=== PATIENT | male | born 1955 | race Caucasian/White ===

== ENCOUNTER 2017-02-01 17:52 | Emergency (ER) | payer OTHER ==
[2017-02-01 18:26] VITALS: BP 153/82
--- NOTE | 2017-02-01 18:49 | RAD ---
INDICATION: Cough and chest pain. COMPARISON: There are no prior studies available for comparison. TECHNIQUE: Dual-energy PA and lateral views of the chest were obtained. FINDINGS: The heart is within normal limits in size. Mediastinal and hilar contours appear within normal limits. The lungs are hyperinflated and clear. No pleural effusion is seen. IMPRESSION: NO EVIDENCE FOR ACUTE FINDING.
--- NOTE | 2017-02-01 19:02 | ED ---
Influenza-Like Illness - HPI Summary HPI Summary: 61 yr old male with the complaint of runny nose, cough, chills, sore throat. Onset a couple of days ago. He has fatigue as well. He states his voice has become slightly hoarse as well. He denies SOB. He does have pain in the upper chest with coughing only. No other complaints. - History of Current Complaint Chief Complaint: UCGeneralIllness Time Seen by Provider: 02/01/17 18:25 - Allergy/Home Medications Allergies/Adverse Reactions: Allergies Allergy/AdvReac Type Severity Reaction Status Date / Time No Known Allergies Allergy Verified 02/01/17 18:21 PMH/Surg Hx/FS Hx/Imm Hx Cardiovascular History: Denies: Hx Hypertension Respiratory History: Denies: Hx Asthma - Surgical History Surgery Procedure, Year, and Place: LEFT knee Infectious Disease History: No Infectious Disease History: Denies: Traveled Outside the [place] in Last 30 Days - Family History Known Family History: Positive: Cardiac Disease - father - Social History Alcohol Use: Rare Substance Use Type: Reports: None Smoking Status (MU): Never Smoked Tobacco Review of Systems Positive: Fever, Chills Positive: Sore Throat, Nasal Discharge Positive: Cough All Other Systems Reviewed And Are Negative: Yes Physical Exam Triage Information Reviewed: Yes Vital Signs On Initial Exam: Initial Vitals Temp Pulse Resp BP Pulse Ox 99.5 F 89 18 153/82 99 02/01/17 18:22 02/01/17 18:22 02/01/17 18:22 02/01/17 18:22 02/01/17 18:22 Vital Signs Reviewed: Yes Appearance: Positive: Well-Appearing, No Pain Distress Skin: Positive: Warm, Skin Color Reflects Adequate Perfusion Head/Face: Positive: Normal Head/Face Inspection Eyes: Positive: Normal, EOMI ENT: Positive: Normal ENT inspection, TMs normal, Muffled/hoarse voice - slight hoarseness to voice Neck: Positive: Supple Respiratory/Lung Sounds: Positive: Clear to Auscultation, Breath Sounds Present. Negative: Stridor Cardiovascular: Positive: Normal, RRR. Negative: Murmur Abdomen Description: Positive: Nontender Musculoskeletal: Positive: Normal, Strength/ROM Intact Neurological: Positive: Normal, Sensory/Motor Intact, Alert, Oriented to Person Place, Time, CN Intact II-III Psychiatric: Positive: Normal Diagnostics - Vital Signs Vital Signs Temp Pulse Resp BP Pulse Ox 02/01/17 18:22 99.5 F 89 18 153/82 99 - Laboratory Lab Results: Lab Results 02/01/17 Range/Units 18:34 Influenza A (Rapid) Negative (Negative) Influenza B (Rapid) Positive H (Negative) Lab Statement: Any lab studies that have been ordered have been reviewed, and results considered in the medical decision making process. Flu Symptom Course/Dx - Course Course Of Treatment: 61 yr old with Influenza B. RX tamiflu and FU PMD - Diagnoses Provider Diagnoses: Influenza Discharge - Discharge Plan Condition: Good Disposition: HOME Prescriptions: Oseltamivir CAP* [Tamiflu CAP*] 75 mg PO BID #10 cap Patient Education Materials: Influenza (ED) Referrals: Jacob Arias MD [Primary Care Provider] -
== END 2017-02-01 19:12 | disposition home or self-care (01) ==
LOC: UCCORT 17:52
DX: J11.1 Influenza due to unidentified influenza virus with other respiratory manifestations (principal)
CPT/HCPCS: 71020; 87502; 99202; G0463

== ENCOUNTER 2017-02-15 17:59 | Emergency (ER) | payer OTHER ==
[2017-02-15 18:26] VITALS: BP 153/90
--- NOTE | 2017-02-15 18:57 | UC ---
Respiratory Complaint HPI - HPI Summary HPI Summary: The patient comes in today for: 1. Rhinitis, cough, eye discharge, plugged ear, Onset: 3-4 days ago. Palliative/provocative: ibuprofen helps "for a couple hours." Quality: Not barking. Region: chest, and nose. Severity: 0/10 Time: Constant. Associated symptoms: Fevers: None. Rhinitis: Dark green. Sinus pressure: Cough: productive of dark green material. * - History of Current Complaint Chief Complaint: UCRespiratory Stated Complaint: COUGH,GLYNN,EYE COMPLAINT Time Seen by Provider: 02/15/17 18:50 Hx Obtained From: Patient - Allergies/Home Medications Allergies/Adverse Reactions: Allergies Allergy/AdvReac Type Severity Reaction Status Date / Time No Known Allergies Allergy Verified 02/15/17 18:26 Home Medications: Home Medications Acetaminophen [Acetaminophen Extra Stren] 2 tab PO Q6H PRN 02/15/17 [History Confirmed 02/15/17] Ibuprofen TAB* [Motrin TAB* 600 MG] 1 tab PO Q6H PRN 02/15/17 [History Confirmed 02/15/17] PMH/Surg Hx/FS Hx/Imm Hx Previously Healthy: Yes Endocrine History Of: Denies: Diabetes, Thyroid Disease, Hyperthyroidism, Hypothyroidism, Dyslipidemia Cardiovascular History Of: Denies: Cardiac Disorders, Hypertension, Pacemaker/ICD, Myocardial Infarction , Congestive Heart Failure, Atrial Fibrillation, Deep Vein Thrombosis, Bleeding Disorders Respiratory History Of: Denies: COPD, Asthma, Bronchitis, Pneumonia, Pulmonary Embolism GI/ History Of: Denies: Gastroesophageal Reflux, Ulcer, Gastrointestinal Bleed, Gall Bladder Disease, Kidney Stones, Diverticulitis, Renal Disease, Urosepsis Neurological History Of: Denies: TIA, CVA, Dementia, Seizures, Migraine Psychological History Of: Denies: Anxiety, Depression, Bipolar Disorder, Schizophrenia, Post Traumatic Stress Disorder Cancer History Of: Denies: Lung Cancer, Colorectal Cancer, Breast Cancer, Prostate Cancer, Cervical Cancer Other History Of: Negative For: HIV, Hepatitis B, Hepatitis C, Anticoagulant Therapy - Surgical History Surgical History: Yes Surgery Procedure, Year, and Place: LEFT knee - Family History Known Family History: Positive: Cardiac Disease - father, Diabetes Negative: Hypertension - Social History Occupation: Employed Full-time Alcohol Use: Rare Substance Use Type: None Smoking Status (MU): Never Smoked Tobacco - Immunization History Most Recent Influenza Vaccination: 2016 Most Recent Tetanus Shot: UTD Most Recent Pneumonia Vaccination: None Review of Systems Constitutional: Negative Skin: Negative Eyes: Drainage ENT: Nasal Discharge Respiratory: Negative Cardiovascular: Negative Gastrointestinal: Negative Genitourinary: Negative All Other Systems Reviewed And Are Negative: Yes Physical Exam Triage Information Reviewed: Yes Appearance: Well-Appearing, No Pain Distress, Well-Nourished Vital Signs: Initial Vital Signs Temp 98.9 F 02/15/17 18:19 Pulse 89 02/15/17 18:19 Resp 16 02/15/17 18:19 BP 153/90 02/15/17 18:19 Pulse Ox 99 02/15/17 18:19 Vital Signs Reviewed: Yes Eyes: Positive: Conjunctiva Inflamed, Discharge - yellow discharge in corners of the eyes. Positive limbal clearing. ENT: Positive: Hearing grossly normal, Other: - NO sinus pressure tenderness.. Negative: Pharyngeal erythema, Nasal congestion, Nasal drainage, TM bulging, TM dull, TM red, Tonsillar swelling, Tonsillar exudate Dental: Negative: Gross Decay/Caries @, Dental Fracture @ Neck: Positive: Supple, Nontender, No Lymphadenopathy. Negative: Nuchal Rigidity Respiratory: Positive: Lungs clear, No respiratory distress, No accessory muscle use. Negative: Crackles, Wheezing Cardiovascular: Positive: RRR, No Murmur Abdomen Description: Positive: Nontender, No Organomegaly, Soft, Distended. Negative: Guarding Musculoskeletal: Positive: Strength Intact, ROM Intact Neurological: Positive: Alert, Muscle Tone Normal Psychological: Positive: Age Appropriate Behavior, Consolable Skin: Negative: rashes, breakdown UC Diagnostic Evaluation - Laboratory O2 Sat by Pulse Oximetry: 99 Respiratory Course/Dx - Differential Dx/Diagnosis Provider Diagnoses: Sinusitis. Bronchitis. Bilateral conjunctivitis Discharge - Discharge Plan Condition: Stable Disposition: HOME Patient Education Materials: Sinusitis (ED), Acute Bronchitis (ED), Conjunctivitis (ED) Referrals: Jacob Arias MD [Primary Care Provider] - 1 Week (Please see your primary care provider in about one to two weeks to see how well you are doing. If you get worse, please be seen sooner.)
== END 2017-02-15 19:21 | disposition home or self-care (01) ==
LOC: UCCORT 17:59
DX: J32.9 Chronic sinusitis, unspecified (principal); J40 Bronchitis, not specified as acute or chronic; H10.33 Unspecified acute conjunctivitis, bilateral
CPT/HCPCS: 99212; G0463